=== PATIENT | male | born 1960 | race African-American/Black ===

== ENCOUNTER 2020-02-28 04:42 | Day surgery (SDC) | payer OTHER ==
[2020-02-26 16:09] VITALS: BMI 27.3
[2020-02-28 12:25] VITALS: TEMP 98.2
[2020-02-28 13:13] VITALS: BP 129/77; PULSE 60
--- NOTE | 2020-02-29 13:54 | PATH ---
Surgical Pathology Report Patient Name: ENGRA ALBA [facility]. Rec. #: [id number] /Age/Gender: 1960 (Age: 59) / M Account: [id number] Location: [facility]-ENDOSCOPY Taken: 02/28/2020 Received: 02/28/2020 Reported: 02/29/2020 Physicians: Osmany Plunkett D.O. Specimen(s) Received A: HOT SNARE POLYPECTOMY SPLENIC FLEXURE B: HOT SNARE POLYPECTOMY PROXIMAL TRANSVERSE COLON C: POLYP RECTUM Clinical History Screening Postoperative diagnosis: Colon polyps Final Diagnosis A. COLON, SPLENIC FLEXURE, HOT SNARE POLYPECTOMY: TUBULAR ADENOMA. B. PROXIMAL TRANSVERSE COLON, HOT SNARE POLYPECTOMY: TUBULAR ADENOMA. C. RECTUM, POLYP, BIOPSY: HYPERPLASTIC POLYP. Electronically Signed Brenda Hobbs M.D. Gross Description A. Received in formalin, labeled "hot snare polypectomy splenic flexure" is a chung, irregular portion of soft tissue measuring 0.5 cm. in greatest dimension. The specimen is submitted in toto in one cassette. B. Received in formalin, labeled "hot snare polypectomy proximal transverse" are 2 chung, irregular portions of soft tissue measuring 0.2 and 0.4 cm. in greatest dimension. The specimens are submitted in toto in one cassette. C. Received in formalin, labeled "biopsy polyp rectum" is a chung, irregular portion of soft tissue measuring 0.2 cm. in greatest dimension. The specimen is submitted in toto in one cassette. /02/28/2020 saudi/02/28/2020
== END 2020-02-28 13:13 | disposition home or self-care (01) ==
LOC: JASU-ENDO 04:42
PROVIDERS: ATTEND Internal Medicine Gastroenterology
PROC: 0DBP8ZX Excision of Rectum, Via Natural or Artificial Opening Endoscopic, Diagnostic (ICD-10-PCS; 2020-02-28)
PROC: 0DBL8ZX Excision of Transverse Colon, Via Natural or Artificial Opening Endoscopic, Diagnostic (ICD-10-PCS; principal; 2020-02-28 11:30)
DX: Z12.11 Encounter for screening for malignant neoplasm of colon (principal); D12.3 Benign neoplasm of transverse colon; K62.1 Rectal polyp; I10 Essential (primary) hypertension; Q43.8 Other specified congenital malformations of intestine; K64.8 Other hemorrhoids
CPT/HCPCS: 88305-TC